=== PATIENT | male | born 1995 | race African-American/Black ===

== ENCOUNTER 2016-08-06 21:09 | Emergency (ER) | payer BC ==
[2016-08-06 21:21] VITALS: BP 127/78; PULSE 100; RESP 20; TEMP 98.6; O2SAT 93
[2016-08-06] MEDS ORDERED: IBUPROFEN 600 MG TAB PO ONE (21:39)
--- NOTE | 2016-08-06 21:57 | EDPHY ---
H & P Stated Complaint: right ankle injury Time Seen by Provider: 08/06/16 21:43 HPI/ROS: Chief Complaint: Right ankle injury HPI: The patient presents to the emergency department with complaints of an injury to his right ankle. He inverted his ankle while playing kickball earlier this evening. The patient does have a history of a prior ankle sprain. The patient denies any associated numbness or weakness. The patient is unable to bear weight. The patient reports moderate pain along the lateral aspect of the ankle. REVIEW OF SYSTEMS: Neuro: no headache, numbness, weakness Musculoskeletal: as above Skin: no abrasion or lacerations Source: Patient Exam Limitations: No limitations - Personal History Current Tetanus Diphtheria and Acellular Pertussis (TDAP): Yes - Medical/Surgical History Hx Asthma: No Hx Chronic Respiratory Disease: No Hx Diabetes: No Hx Cardiac Disease: No Hx Renal Disease: No Hx Cirrhosis: No Hx Alcoholism: No Hx HIV/AIDS: No Hx Splenectomy or Spleen Trauma: No - Social History Smoking Status: Never smoked - Physical Exam Exam: General appearance: alert no distress Right ankle: There is swelling and tenderness over the lateral malleolus. Ankle joint is stable and there is no tenderness over the Achilles tendon. The foot is nontender without swelling. Neurologic exam: The patient has normal sensation and motor function distal to the injury. Vascular exam: Normal pulses and capillary refill in the foot DIFFERENTIAL DIAGNOSIS: After history and physical exam differential diagnosis was considered for ankle injury including sprain, fracture, dislocation and soft tissue injury. Constitutional: Initial Vital Signs Temperature (C) 37 C 08/06/16 21:18 Heart Rate 100 08/06/16 21:18 Respiratory Rate 20 08/06/16 21:18 Blood Pressure 127/78 H 08/06/16 21:18 O2 Sat (%) 93 08/06/16 21:18 Allergies/Adverse Reactions: No Known Allergies Allergy (Unverified 08/06/16 21:18) Home Medications: Medication Instructions Recorded NK [No Known Home Meds] 08/06/16 Medical Decision Making - Diagnostics Imaging: Right ankle x-ray: Images reviewed by myself and discussed with radiologist. Negative for acute fracture dislocation ED Course/Re-evaluation: The patient presents to the ED with a right ankle sprain. The patient has been placed in a Stinson boot. The patient is advised to weight bear as tolerated. The patient should ice and use NSAIDs as needed. Patient is given follow up with our on-call orthopedic surgeon Dr. Luis E Slater for any unimproved symptoms. - Data Points Medications Given: Discontinued Medications Ibuprofen (Motrin) 600 mg PO EDNOW ONE Stop: 08/06/16 21:40 Last Admin: 08/06/16 21:44 Dose: 600 mg Departure - Departure Disposition: Home, Routine, Self-Care Clinical Impression: Right ankle sprain Condition: Good Instructions: Ankle Sprain (ED) Additional Instructions: 1. Take Ibuprofen or Motrin 600 mg by mouth three times a day. 2. You Stinson boot as needed for support. 3. Please follow up with the foot and ankle specialist you have been referred to for pain, swelling or immobility which persists past 7-10 days Referrals: Luis E Slater MD [Medical Doctor] - As per Instructions
== END 2016-08-06 22:05 | disposition home or self-care (01) ==
DX: S93.401A Sprain of unspecified ligament of right ankle, initial encounter (principal); X58.XXXA Exposure to other specified factors, initial encounter; Y93.89 Activity, other specified
CPT/HCPCS: L4386

== ENCOUNTER 2016-10-26 02:51 | Emergency (ER) | payer OTHER, BC ==
[2016-10-26 03:03] VITALS: RESP 16; TEMP 97.9
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
[2016-10-26] MEDS ORDERED: IBUPROFEN 600 MG TAB PO ONE ×2 (04:09→04:21)
[2016-10-26 04:23] VITALS: BP 149/89; PULSE 87; O2SAT 99
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
== END 2016-10-26 04:23 | disposition home or self-care (01) ==
LOC: EDUNIT#
PROC: 3E0T3CZ (ICD-10-PCS; principal; 2016-10-26)
DX: S02.2XXA Fracture of nasal bones, initial encounter for closed fracture (principal); S60.512A Abrasion of left hand, initial encounter; V89.2XXA Person injured in unspecified motor-vehicle accident, traffic, initial encounter; Y92.410 Unspecified street and highway as the place of occurrence of the external cause; Y99.8 Other external cause status; Y93.89 Activity, other specified

== ENCOUNTER 2017-01-02 18:19 | Emergency (ER) | payer BC, OTHER ==
[2017-01-02 18:31] VITALS: RESP 18; TEMP 98.4
[2017-01-02] MEDS ORDERED: LORazepam 2 MG/ML INJ IVP ONE (19:22)
--- NOTE | 2017-01-02 19:22 | EDPHY ---
H & P Time Seen by Provider: 01/02/17 18:57 HPI/ROS: Chief complaint. Chest pain HPI. 21-year-old male with complaints of shaking this generalized, chest pain, blurry vision. He describes his chest pain as compressing left anterior chest without radiation. No change with breathing or exertion. No sickness or fever. No sore throat or cough. Has a history of anxiety. He did not take his anxiety medications. He has also had shortness of breath and mom reports he was crying when she came to pick him up. He has had similar symptoms previously. Maybe slight shortness of breath. ROS Constitutional. Shaking, anxious Eyes. no problems with vision ENT. no sore throat, no nasal drainage Cardiovascular. Chest pain Respiratory. Slight shortness of breath Abdominal. no abdominal pain, no nausea/vomiting, no diarrhea . no problems urinating MS. no calf pain/swelling, no neck/back pain, no joint pain Skin. no rash Lymph. no swollen glands Neuro. no headache, no dizziness, no difficulty walking or with speech Past Medical/Surgical History: Depression, anxiety Social History: Single, nonsmoker, no alcohol Smoking Status: Never smoked Physical Exam: General Appearance: Alert, anxious well-developed male. Vital signs heart rate 104 Eyes: Pupils equal and round no pallor or injection. ENT, Mouth: Mucous membranes are moist. Respiratory: There are no retractions, lungs are clear to auscultation. Cardiovascular: Regular rate and rhythm. Gastrointestinal: Abdomen is soft and nontender, no masses, bowel sounds normal. Neurological: Awake and alert, sensory and motor exams grossly normal. Skin: Warm and dry, no rashes. Musculoskeletal: Neck is supple nontender. Extremities symmetrical, full range of motion. Psychiatric: Oriented x3. He is slightly agitated and anxious Constitutional: Initial Vital Signs Temperature (C) 36.9 C 01/02/17 18:24 Heart Rate 104 H 01/02/17 18:24 Respiratory Rate 18 01/02/17 18:24 Blood Pressure 133/97 H 01/02/17 18:24 O2 Sat (%) 98 01/02/17 18:24 O2 Delivery Mode Room Air Allergies/Adverse Reactions: No Known Allergies Allergy (Verified 01/02/17 18:22) Home Medications: Medication Instructions Recorded Mirtazapine [Remeron soltab 15 mg 30 mg PO DAILY 01/02/17 (*)] hydrOXYzine HCL [hydrOXYzine HCL 25 mg PO 01/02/17 (RX)] Medical Decision Making - Diagnostics EKG Interpretation: EKG interpreted by me shows normal sinus rhythm with normal intervals and axis. QRS is normal there is no significant ST elevation or depression. No arrhythmia. The rate is 80 Procedures: IV normal saline. Ativan IV ED Course/Re-evaluation: Re-evaluation at 8:40 p.m.. The patient and I discussed EKG and laboratory evaluation. We discussed treatment plan including criteria for return importance of follow-up and further evaluation. He expresses understanding and agreement His symptoms have completely resolved Differential Diagnosis: I think that this is likely anxiety. I considered electrolyte abnormality, cardiac arrhythmia. - Data Points Laboratory Results: Laboratory Results 01/02/17 19:50 01/02/17 19:50 01/02/17 01/02/17 01/02/17 19:50 19:50 19:50 WBC 10.51 10^3/uL H 10^3/uL (3.80-9.50) RBC 6.52 10^6/uL H 10^6/uL (4.40-6.38) Hgb 14.8 g/dL g/dL (13.7-17.5) Hct 47.6 % % (40.0-51.0) MCV 73.0 fL L fL (81.5-99.8) MCH 22.7 pg L pg (27.9-34.1) MCHC 31.1 g/dL L g/dL (32.4-36.7) RDW 15.9 % H % (11.5-15.2) Plt Count 334 10^3/uL 10^3/uL (150-400) MPV 10.2 fL fL (8.7-11.7) Neut % (Auto) 63.9 % % (39.3-74.2) Lymph % (Auto) 22.7 % % (15.0-45.0) [place] % (Auto) 10.5 % % (4.5-13.0) Eos % (Auto) 1.3 % % (0.6-7.6) Baso % (Auto) 1.1 % % (0.3-1.7) Nucleat RBC Rel Count 0.0 % % (0.0-0.2) Absolute Neuts (auto) 6.71 10^3/uL H 10^3/uL (1.70-6.50) Absolute Lymphs (auto) 2.39 10^3/uL 10^3/uL (1.00-3.00) Absolute Monos (auto) 1.10 10^3/uL H 10^3/uL (0.30-0.80) Absolute Eos (auto) 0.14 10^3/uL 10^3/uL (0.03-0.40) Absolute Basos (auto) 0.12 10^3/uL H 10^3/uL (0.02-0.10) Absolute Nucleated RBC 0.00 10^3/uL 10^3/uL (0-0.01) Immature Gran % 0.5 % % (0.0-1.1) Immature Gran # 0.05 10^3/uL 10^3/uL (0.00-0.10) D-Dimer < 0.27 ug/mLFEU ug/mLFEU (0.00-0.50) Sodium 138 mEq/L mEq/L (134-144) Potassium 4.3 mEq/L mEq/L (3.5-5.2) Chloride 103 mEq/L mEq/L (97-110) Carbon Dioxide 22 mEq/l mEq/l (22-31) Anion Gap 13 mEq/L mEq/L (8-16) BUN 13 mg/dL mg/dL (7-23) Creatinine 0.9 mg/dL mg/dL (0.7-1.3) Estimated GFR > 60 Glucose 84 mg/dL mg/dL (70-100) Calcium 9.8 mg/dL mg/dL (8.5-10.4) Troponin I < 0.012 ng/mL ng/mL (0.000-0.034) Medications Given: Discontinued Medications Lorazepam (Ativan Injection) 1 mg IVP EDNOW ONE Stop: 01/02/17 19:23 Last Admin: 01/02/17 19:53 Dose: 1 mg Departure - Departure Disposition: Home, Routine, Self-Care Clinical Impression: Acute anxiety Condition: Good Instructions: Anxiety (ED) Additional Instructions: Continue regular medications. Return for worsening symptoms. Follow up with your regular physician for further discussion possible medication adjustment Referrals: FAMILY,PRACTICE [Other] - As per Instructions DAVEY AGUIRRE [Non Staff Provider (MD)] - 2-3 days, call for appt. Stand Alone Forms: Work Excuse
[2017-01-02 20:04] LABS: % IMMATURE GRANULYOCYTES 0.5 % (0.0-1.1); ABSOLUTE IMMATURE GRANULOCYTES 0.05 10^3/uL (0.00-0.10); ADD DIFF? NO; ADD MORPH? NO; ADD SCAN? NO; ATYPICAL LYMPHOCYTE FLAG 30 (0-99); FRAGMENT RBC FLAG 0 (0-99); HEMATOCRIT 47.6 % (40.0-51.0); HEMOGLOBIN 14.8 g/dL (13.7-17.5); LEFT SHIFT FLG 0 (0-99); LIPEMIA HEMOLYSIS FLAG 80 (0-99); MEAN CELL HEMOGLOBIN 22.7 pg (27.9-34.1); MEAN CELL HEMOGLOBIN CONCENTR. 31.1 g/dL (32.4-36.7); MEAN PLATELET VOLUME 10.2 fL (8.7-11.7); PLATELET CLUMPS FLAG 0 (0-99); PLATELET COUNT 334 10^3/uL (150-400); RED BLOOD CELL COUNT 6.52 10^6/uL (4.40-6.38); RED CELL DISTRIBUTION WIDTH 15.9 % (11.5-15.2)
--- NOTE | 2017-01-02 20:09 | CPEKG ---
Heart Rate: 80 RR Interval: 750 P-R Interval: 152 QRSD Interval: 82 QT Interval: 368 QTC Interval: 425 P [place]: 80 QRS [place]: 76 T Wave [place]: 35 EKG Severity - NORMAL ECG - EKG Impression: SINUS RHYTHM Electronically Signed By: Johana Berumen 02-Jan-2017 20:26:28
[2017-01-02 20:14] LABS: ANION GAP 13 mEq/L (8-16); CALCIUM 9.8 mg/dL (8.5-10.4); CARBON DIOXIDE 22 mEq/l (22-31); CHLORIDE 103 mEq/L (97-110); CREATININE 0.9 mg/dL (0.7-1.3); GLOMERULAR FILTRATION RATE > 60; GLUCOSE 84 mg/dL (70-100); POTASSIUM 4.3 mEq/L (3.5-5.2); SODIUM 138 mEq/L (134-144)
[2017-01-02 20:26] LABS: TROPONIN I < 0.012 ng/mL (0.000-0.034)
[2017-01-02 21:30] VITALS: BP 118/81; PULSE 80; O2SAT 97
== END 2017-01-02 21:30 | disposition home or self-care (01) ==
DX: R07.89 Other chest pain (principal); F41.9 Anxiety disorder, unspecified
CPT/HCPCS: 96374; J2060

== ENCOUNTER 2017-01-05 17:37 | Emergency (ER) | payer BC ==
[2017-01-05 17:39] VITALS: RESP 16
[2017-01-05 17:56] LABS: % IMMATURE GRANULYOCYTES 0.3 % (0.0-1.1); ABSOLUTE IMMATURE GRANULOCYTES 0.03 10^3/uL (0.00-0.10); ADD DIFF? NO; ADD MORPH? NO; ADD SCAN? NO; ATYPICAL LYMPHOCYTE FLAG 20 (0-99); FRAGMENT RBC FLAG 0 (0-99); HEMATOCRIT 46.6 % (40.0-51.0); HEMOGLOBIN 14.4 g/dL (13.7-17.5); LEFT SHIFT FLG 0 (0-99); LIPEMIA HEMOLYSIS FLAG 80 (0-99); MEAN CELL HEMOGLOBIN 22.6 pg (27.9-34.1); MEAN CELL HEMOGLOBIN CONCENTR. 30.9 g/dL (32.4-36.7); MEAN CELL VOLUME 73.2 fL (81.5-99.8); MEAN PLATELET VOLUME 10.5 fL (8.7-11.7); PLATELET CLUMPS FLAG 0 (0-99); PLATELET COUNT 306 10^3/uL (150-400); RED BLOOD CELL COUNT 6.37 10^6/uL (4.40-6.38); RED CELL DISTRIBUTION WIDTH 15.6 % (11.5-15.2)
[2017-01-05 18:14] LABS: ANION GAP 16 mEq/L (8-16); CALCIUM 9.9 mg/dL (8.5-10.4); CARBON DIOXIDE 22 mEq/l (22-31); CHLORIDE 104 mEq/L (97-110); CREATININE 0.9 mg/dL (0.7-1.3); ETHANOL SERUM < 10 mg/dL (0-10); GLOMERULAR FILTRATION RATE > 60; GLUCOSE 101 mg/dL (70-100); POTASSIUM 3.8 mEq/L (3.5-5.2); SALICYLATE < 1.0 mg/dL (2.0-20.0); SODIUM 142 mEq/L (134-144)
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
[2017-01-05 22:58] VITALS: O2SAT 97
[2017-01-06 02:09] VITALS: BP 116/79; PULSE 74; TEMP 98.4
== END 2017-01-06 02:07 | disposition home or self-care (01) ==
DX: F43.21 Adjustment disorder with depressed mood (principal)
CPT/HCPCS: 80305; G0480

== ENCOUNTER → 2017-01-21 | Outpatient (CLI) | payer BC ==
[~2017-01-21] MED LIST: GADOBUTROL 10 ML VIAL IVP ONE
== END ==
LOC: FIMAGING 15:26
PROVIDERS: ATTEND Physician Assistant Medical
DX: S06.0X9A Concussion with loss of consciousness of unspecified duration, initial encounter (principal); F39 Unspecified mood [affective] disorder; R51 Headache
CPT/HCPCS: A9585

== ENCOUNTER 2017-04-07 10:52 | Emergency (ER) | payer BC ==
[2017-04-07 10:57] VITALS: RESP 16
[2017-04-07] MEDS ORDERED: IBUPROFEN 600 MG TAB PO ONE ×2 (11:12→11:33)
[2017-04-07] MEDS ORDERED: HYDROCODONE/APAP 5/325 TAB PO ONE (11:12)
--- NOTE | 2017-04-07 11:15 | EDPHY ---
General Narrative: CHIEF COMPLAINT: Left hand injury, punch to refrigerator HISTORY OF PRESENT ILLNESS: Patient complains of pain in the left 5th knuckle after punching refrigerator 1 hr ago. He did so out of anger. Significantly painful. No numbness or tingling. Difficulty bending the pinky due to pain. No pain at will pinky itself but the pain radiates into it. No laceration. No puncture. No pain in the left wrist, elbow or forearm. Worse with palpation and movement. No improvement rest. No other associated complaints or modifying factors. ESTABLISHED ORTHOPEDIST: None REVIEW OF SYSTEMS: Ten systems reviewed and are negative unless otherwise noted in the HPI PAST MEDICAL HISTORY: Microcytosis PAST SURGICAL HISTORY: None SOCIAL HISTORY: Nonsmoker. Originally from [place]. Currently at [facility] FAMILY HISTORY: Nausea toward EXAMINATION General Appearance: Alert, no distress Cardiovascular: Symmetric radial pulses 2+. Brisk cap refill Neurological: A&O, light sensation intact in the back of both hands. Interossei strength intact in the left hand. Skin: Warm and dry, no rash. No puncture. No laceration. Some swelling ecchymosis of the left 5th MCP joint. Extremities: Tenderness of the left MCP joint and left metacarpal. No bony tenderness of the left pinky. Range of motion of the hand is intact with slight radial deviation of the left pinky with flexion. No deficits with flexion or extension. No pain in the left anatomic snuffbox. Neurovascular intact distally Psychiatric: Mood and affect normal DIFFERENTIAL DIAGNOSES: Including but not limited to boxer's fracture, contusion, sprain, strain MDM: 11:13 a.m. Punch injury to the left hand with suspected boxer's fracture. He is neuro intact with some radial deviation of the pinky with flexion. No laceration or puncture. This is a closed injury. X-ray has been performed but not yet viewable. He is in no acute distress. Ibuprofen and Winside ordered. 11:20 a.m. X-ray as read by me reveals no acute fracture dislocation per 11:35 a.m. Radiologist has read this as a negative x-ray. I have re-evaluated the patient. He is neurovascular intact in no acute distress. He is asking for heart cast to be placed. I informed him that we do not do that. I will place him in a Velcro splint as I do not find any bony abnormality, and no pain in the anatomic snuffbox. I will discharge him with prescription for ibuprofen and outpatient follow-up for hand surgeon for definitive care. ED precautions discussed. Work note provided. He is comfortable with plan and discharged home in stable condition. SUPERVISION: This patient was independently evaluated without direct involvement of or examination by the attending physician. ED Precautions: Worsening pain. Erythema, edema, cyanosis, pallor, paresthesia or anesthesia. - Diagnostics Imaging Results: Imaging Impressions Hand X-Ray 04/07/17 10:58 Impression: Negative. No acute fracture. - History Smoking Status: Never smoked - Objective Vital Signs: Initial Vital Signs Temperature (C) 98.6 F 04/07/17 10:54 Heart Rate 69 04/07/17 10:54 Respiratory Rate 16 04/07/17 10:54 Blood Pressure 132/84 H 04/07/17 10:54 O2 Sat (%) 97 04/07/17 10:54 O2 Delivery Mode Room Air Allergies/Adverse Reactions: No Known Allergies Allergy (Verified 04/07/17 10:54) Home Medications: Medication Instructions Recorded Ibuprofen 600 mg PO Q8 PRN #15 tablet 04/07/17 Medications Given: Discontinued Medications Hydrocodone Bitart/Acetaminophen (Winside 5/325) 1 tab PO EDNOW ONE Stop: 04/07/17 11:13 Last Admin: 04/07/17 11:22 Dose: 1 tab Ibuprofen (Motrin) 600 mg PO EDNOW ONE Stop: 04/07/17 11:13 Last Admin: 04/07/17 11:20 Dose: 600 mg Departure - Departure Disposition: Home, Routine, Self-Care Clinical Impression: Contusion of hand, left Qualifiers: Encounter type: initial encounter Qualified Code(s): S60.222A - Contusion of left hand, initial encounter Condition: Good Instructions: Hand Sprain (ED) Additional Instructions: 1. Ibuprofen as prescribed as needed 2. Ice and elevate the extremity often 3. Brace as supplied as needed 4. Contact the hand surgeon for definitive care Referrals: Joe Mcdonald MD [Medical Doctor] - As per Instructions Stand Alone Forms: Work Excuse Prescriptions: Ibuprofen 600 mg PO Q8 PRN #15 tablet PRN Reason: Pain, Mild
[2017-04-07 11:59] VITALS: BP 122/62; PULSE 60; TEMP 98.6; O2SAT 98
== END 2017-04-07 11:59 | disposition home or self-care (01) ==
DX: S60.222A Contusion of left hand, initial encounter (principal); W22.8XXA Striking against or struck by other objects, initial encounter; Y93.89 Activity, other specified
CPT/HCPCS: L3908

== ENCOUNTER 2017-05-02 00:34 | Emergency (ER) | payer BC ==
--- NOTE | 2017-05-02 00:55 | EDPHY ---
H & P Stated Complaint: RECENT PNU,BUT FEELS LIKE HE TRIPPING HPI/ROS: HPI CHIEF COMPLAINT: Anxiety HISTORY OF PRESENT ILLNESS: This patient very pleasant 22-year-old male, he is otherwise healthy does have significant past medical history anxiety takes hydroxyzine p.r.n., he presents emergency room feeling anxious. Additionally reports that everything in the room is wavy. He states this made him feel more anxious decided come the emergency room. Initially he had numbness and tingling throughout his entire body this has since resolved. Patient states that he cannot sleep in like something for him to sleep. Past Medical History: Acute anxiety Past Surgical History: Denies surgical history Social History: Denies daily use of drugs alcohol tobacco. [employer] student. Family History: Noncontributory ROS REVIEW OF SYSTEMS: A comprehensive 10 point review of systems is otherwise negative aside from elements mentioned in the history of present illness. Exam Constitutional appears well nontoxic, anxious, triage nursing summary reviewed , vital signs reviewed, awake/alert. Eyes normal conjunctivae and sclera, EOMI, PERRLA. HENT normal inspection, atraumatic, moist mucus membranes, no epistaxis, neck supple/ no meningismus, no raccoon eyes. Respiratory clear to auscultation bilaterally, normal breath sounds, no respiratory distress, no wheezing. Cardiovascular rate normal, regular rhythm, no murmur, no edema, distal pulses normal. Gastrointestinal soft, non-tender, no rebound, no guarding, normal bowel sounds, no distension, no pulsatile mass. Genitourinary no CVA tenderness. Musculoskeletal no midline vertebral tenderness, full range of motion, no calf swelling, no tenderness of extremities, no meningismus, good pulses, neurovascularly intact. Skin pink, warm, & dry, no rash, skin atraumatic. Neurologic awake, alert and oriented x 3, AAOx3, moves all 4 extremities equally, motor intact, sensory intact, CN II-XII intact, normal cerebellar, normal vision, normal speech. Psychiatric anxious. Heme/Lymph/Immune no lymphadenopathy. Differential Diagnosis: Includes but is not limited to in a particular order acute anxiety, electrolyte disturbance, dehydration Medical Decision Making: Plan for this patient IV establishment IV fluid bolus 1 L normal saline, 1 mg IV Ativan for anxiety, check basic blood work and re- evaluate. Re-evaluation: 0304: Did re-evaluate this patient this time he feels much better after IV Ativan in-fact he has been sleeping. He denies any current complaints. He has not had any nausea vomiting. Vital signs are stable. Blood work is unremarkable normal electrolytes and a normal CBC years feels better after IV Ativan. Discussed return precautions with him. Additionally recommend that he talks to his primary care doctor about his anxiety. He understands return emergency room if he has worsening symptoms includes vomiting, fever, feeling worse. Source: Patient - Personal History Current Tetanus/Diphtheria Vaccine: Yes Current Tetanus Diphtheria and Acellular Pertussis (TDAP): Yes - Medical/Surgical History Hx Asthma: No Hx Chronic Respiratory Disease: No Hx Diabetes: No Hx Cardiac Disease: No Hx Renal Disease: No Hx Cirrhosis: No Hx Alcoholism: No Hx HIV/AIDS: No Hx Splenectomy or Spleen Trauma: No Other PMH: anxiety, DEPRESSION - Social History Smoking Status: Never smoked Constitutional: Initial Vital Signs Temperature (C) 36.8 C 05/02/17 00:43 Heart Rate 97 05/02/17 00:43 Respiratory Rate 18 05/02/17 00:43 Blood Pressure 130/87 H 05/02/17 00:43 O2 Sat (%) 97 05/02/17 00:43 O2 Delivery Mode Room Air Allergies/Adverse Reactions: No Known Allergies Allergy (Verified 05/02/17 00:46) Home Medications: Medication Instructions Recorded Ibuprofen 600 mg PO Q8 PRN #15 tablet 04/07/17 hydrOXYzine HCL [Vistaril 25MG] 25 mg PO 05/02/17 Medical Decision Making - Data Points Laboratory Results: Laboratory Results 05/02/17 01:15 05/02/17 01:15 05/02/17 05/02/17 01:15 01:15 WBC 6.88 10^3/uL 10^3/uL (3.80-9.50) RBC 6.53 10^6/uL H 10^6/uL (4.40-6.38) Hgb 15.0 g/dL g/dL (13.7-17.5) Hct 46.4 % % (40.0-51.0) MCV 71.1 fL L fL (81.5-99.8) MCH 23.0 pg L pg (27.9-34.1) MCHC 32.3 g/dL L g/dL (32.4-36.7) RDW 14.3 % % (11.5-15.2) Plt Count 330 10^3/uL 10^3/uL (150-400) MPV 9.8 fL fL (8.7-11.7) Neut % (Auto) 49.2 % % (39.3-74.2) Lymph % (Auto) 37.1 % % (15.0-45.0) [place] % (Auto) 10.8 % % (4.5-13.0) Eos % (Auto) 1.7 % % (0.6-7.6) Baso % (Auto) 0.9 % % (0.3-1.7) Nucleat RBC Rel Count 0.0 % % (0.0-0.2) Absolute Neuts (auto) 3.39 10^3/uL 10^3/uL (1.70-6.50) Absolute Lymphs (auto) 2.55 10^3/uL 10^3/uL (1.00-3.00) Absolute Monos (auto) 0.74 10^3/uL 10^3/uL (0.30-0.80) Absolute Eos (auto) 0.12 10^3/uL 10^3/uL (0.03-0.40) Absolute Basos (auto) 0.06 10^3/uL 10^3/uL (0.02-0.10) Absolute Nucleated RBC 0.00 10^3/uL 10^3/uL (0-0.01) Immature Gran % 0.3 % % (0.0-1.1) Immature Gran # 0.02 10^3/uL 10^3/uL (0.00-0.10) Sodium 148 mEq/L H mEq/L (134-144) Potassium 3.8 mEq/L mEq/L (3.5-5.2) Chloride 106 mEq/L mEq/L (97-110) Carbon Dioxide 26 mEq/l mEq/l (22-31) Anion Gap 16 mEq/L mEq/L (8-16) BUN 15 mg/dL mg/dL (7-23) Creatinine 0.9 mg/dL mg/dL (0.7-1.3) Estimated GFR > 60 Glucose 98 mg/dL mg/dL (70-100) Calcium 9.7 mg/dL mg/dL (8.5-10.4) Medications Given: Discontinued Medications Sodium Chloride (Ns) 1,000 mls @ 0 mls/hr IV ONCE ONE PRN Reason: Wide Open Stop: 05/02/17 00:59 Last Admin: 05/02/17 00:58 Dose: 1,000 mls Lorazepam (Ativan Injection) 1 mg IVP EDNOW ONE Stop: 05/02/17 00:59 Last Admin: 05/02/17 01:17 Dose: 1 mg Departure - Departure Disposition: Home, Routine, Self-Care Clinical Impression: Anxiety Condition: Good Instructions: Anxiety (ED) Additional Instructions: 1. Follow up with her primary care doctor. 2. Return to the emergency room if you have worsening symptoms questions or concerns. Referrals: UNKNOWN,NAME [Other] - As per Instructions
[2017-05-02] MEDS ORDERED: LORazepam 2 MG/ML INJ IVP ONE (00:58)
[2017-05-02] MEDS ORDERED: NS 1,000 ML IV ONE (00:58)
[2017-05-02 01:22] LABS: PLATELET COUNT 330 10^3/uL (150-400)
[2017-05-02 02:26] VITALS: RESP 16
[2017-05-02 03:13] VITALS: BP 96/55; PULSE 74; TEMP 98.1; O2SAT 96
== END 2017-05-02 03:19 | disposition home or self-care (01) ==
PROC: 3E0337Z Introduction of Electrolytic and Water Balance Substance into Peripheral Vein, Percutaneous Approach (ICD-10-PCS; principal; 2017-05-02)
DX: F41.9 Anxiety disorder, unspecified (principal)
CPT/HCPCS: 96374; J2060

== ENCOUNTER 2017-10-03 17:18 | Inpatient (IN) | payer BC ==
[2017-10-03] MEDS ORDERED: NS 1,800 ML IV ONE (18:19)
[2017-10-03] MEDS ORDERED: ACETAMINOPHEN 500 MG TAB PO ONE (18:19)
[2017-10-03] MEDS ORDERED: ACETAMINOPHEN 500 MG TAB ONE (19:01)
[2017-10-03 19:04] LABS: PLATELET COUNT 231 10^3/uL (150-400)
--- NOTE | 2017-10-03 19:05 | EDPHY ---
H & P Time Seen by Provider: 10/03/17 18:18 HPI/ROS: Chief complaint. Fever HPI. 22-year-old male fever for 2 days. Been using [id number] medications. He feels shaky and anxious. He has the pain in his back in his legs. Myalgias. No chest pain, shortness of breath, cough. No unusual leg or swelling. No abdominal pain urinary symptoms. Vomiting x1 today. No travel or known exposures to Infectious Disease. No sore throat or congestion. ROS Constitutional. Fever and chills Eyes. no problems with vision ENT. no sore throat, no nasal drainage Cardiovascular. no chest pain Respiratory. no shortness of breath, no cough Abdominal. no abdominal pain, no nausea/vomiting, no diarrhea . no problems urinating MS. Myalgias Skin. no rash Lymph. no swollen glands Neuro. no headache, no dizziness, no difficulty walking or with speech Past Medical/Surgical History: Anxiety, depression Social History: Single, nonsmoker, no alcohol Smoking Status: Never smoked Physical Exam: General Appearance: Alert well-developed male temp 39 degrees otherwise vital signs stable Eyes: Pupils equal and round no pallor or injection. ENT, tympanic membranes are normal. Pharynx without injection. Mucous membranes are moist Respiratory: There are no retractions, lungs are clear to auscultation. Cardiovascular: Regular rate and rhythm. Gastrointestinal: Abdomen is soft and nontender, no masses, bowel sounds normal. Neurological: Awake and alert, sensory and motor exams grossly normal. Skin: Warm and dry, no rashes. Musculoskeletal: Neck is supple nontender. Extremities symmetrical, full range of motion. Psychiatric: Patient is oriented X 3, there is no agitation. Constitutional: Initial Vital Signs Temperature (C) 39 C H 10/03/17 17:41 Heart Rate 98 10/03/17 17:41 Respiratory Rate 36 H 10/03/17 17:41 Blood Pressure 124/71 H 10/03/17 17:41 O2 Sat (%) 99 10/03/17 17:41 O2 Delivery Mode Room Air Allergies/Adverse Reactions: No Known Allergies Allergy (Verified 10/03/17 17:40) Medical Decision Making - Diagnostics Imaging Results: Imaging Impressions Chest X-Ray 10/03/17 18:19 Impression: Normal chest, negative for acute cardiopulmonary abnormality. Chest x-ray interpreted by me is normal CT abdomen pelvis with IV contrast shows a normal appendix. There is a stone in the renal calices but not in the ureter. No evidence for hydronephrosis. Procedures: IV normal saline; ibuprofen for fever Sepsis evaluation ED Course/Re-evaluation: 7:30 p.m. Severe sepsis declared now. Patient has an elevated lactate at 2.5. Re-evaluation 7:35 p.m..--patient is moving his head and neck around without difficulty. His complaint really is right flank pain and re-evaluation of his abdomen shows tenderness in the right lower quadrant. Patient will be medicated and CT abdomen pelvis ordered. Re-evaluation at 8:25 p.m.. Patient is stable. He and I discussed imaging and lab results. We discussed treatment plan including recommendation for admission. He expresses understanding and agreement I consulted discussed case Dr. Luna, hospitalist, who agrees to the admission Differential Diagnosis: I do not think the patient has meningitis. I think this may be viral syndrome. I considered pneumonia, urinary tract infection pyelonephritis. I considered kidney stone and appendicitis. - Data Points Laboratory Results: Laboratory Results 10/03/17 18:45 10/03/17 18:45 10/03/17 10/03/17 10/03/17 19:05 18:45 18:45 WBC RBC Hgb Hct MCV MCH MCHC RDW Plt Count MPV Neut % (Auto) Lymph % (Auto) [place] % (Auto) Eos % (Auto) Baso % (Auto) Nucleat RBC Rel Count Absolute Neuts (auto) Absolute Lymphs (auto) Absolute Monos (auto) Absolute Eos (auto) Absolute Basos (auto) Absolute Nucleated RBC Immature Gran % Seg Neutrophils % Band Neutrophils % Lymphocytes % Monocytes % Eosinophils % Basophils % Metamyelocytes % Myelocytes % Promyelocytes % Blast Cells % Immature Gran # Absolute Seg Neuts Absolute Band Neuts Absolute Lymphocytes Absolute Monocytes Absolute Eosinophils Absolute Basophils Absolute Metamyelocyte Absolute Myelocytes Absolute Promyelocytes Absolute Plasma Cells Absolute Blast Cells Plasma Cells % Platelet Estimate Microcytic Cells Elliptocytes Acanthocytes (Spur) Smear Review By PT 15.4 SEC H SEC (12.0-15.0) INR 1.20 H (0.83-1.16) APTT 34.6 SEC SEC (23.0-38.0) VBG Lactic Acid 2.5 mmol/L H mmol/L (0.7-2.1) Sodium 135 mEq/L mEq/L (135-145) Potassium 3.3 mEq/L mEq/L (3.3-5.0) Chloride 101 mEq/L mEq/L (97-110) Carbon Dioxide 19 mEq/l L mEq/l (22-31) Anion Gap 15 mEq/L mEq/L (8-16) BUN 7 mg/dL mg/dL (7-23) Creatinine 0.9 mg/dL mg/dL (0.7-1.3) Estimated GFR > 60 Glucose 94 mg/dL mg/dL (70-100) Calcium 9.1 mg/dL mg/dL (8.5-10.4) Total Bilirubin 1.4 mg/dL mg/dL (0.1-1.4) Urine Color Urine Appearance Urine pH Ur Specific [place] Urine Protein Urine Ketones Urine Blood Urine Nitrate Urine Bilirubin Urine Urobilinogen Ur Leukocyte Esterase Urine RBC Urine WBC Ur Epithelial Cells Urine Mucus Urine Glucose 10/03/17 10/03/17 18:45 17:45 WBC 14.20 10^3/uL H 10^3/uL (3.80-9.50) RBC 5.86 10^6/uL 10^6/uL (4.40-6.38) Hgb 13.2 g/dL L g/dL (13.7-17.5) Hct 40.7 % % (40.0-51.0) MCV 69.5 fL L fL (81.5-99.8) MCH 22.5 pg L pg (27.9-34.1) MCHC 32.4 g/dL g/dL (32.4-36.7) RDW 13.8 % % (11.5-15.2) Plt Count 231 10^3/uL 10^3/uL (150-400) MPV 10.8 fL fL (8.7-11.7) Neut % (Auto) Not Reported Lymph % (Auto) Not Reported [place] % (Auto) Not Reported Eos % (Auto) Not Reported Baso % (Auto) Not Reported Nucleat RBC Rel Count Not Reported Absolute Neuts (auto) Not Reported Absolute Lymphs (auto) Not Reported Absolute Monos (auto) Not Reported Absolute Eos (auto) Not Reported Absolute Basos (auto) Not Reported Absolute Nucleated RBC Not Reported Immature Gran % Not Reported Seg Neutrophils % 88.0 % % Band Neutrophils % 0 % % Lymphocytes % 4.0 % % Monocytes % 8.0 % % Eosinophils % 0 % % Basophils % 0 % % Metamyelocytes % 0 % % Myelocytes % 0 % % Promyelocytes % 0 % % Blast Cells % 0 % % Immature Gran # Not Reported Absolute Seg Neuts 12.50 10^/uL H 10^/uL (1.70-6.50) Absolute Band Neuts 0.00 10^3/uL 10^3/uL (0.00-0.70) Absolute Lymphocytes 0.57 10^3/uL L 10^3/uL (1.00-3.00) Absolute Monocytes 1.14 10^3/uL H 10^3/uL (0.30-0.80) Absolute Eosinophils 0.00 10^3/uL L 10^3/uL (0.03-0.40) Absolute Basophils 0.00 10^3/uL L 10^3/uL (0.02-0.10) Absolute Metamyelocyte 0.00 10^3/mL 10^3/mL (0.00-0.00) Absolute Myelocytes 0.00 10^3/mL 10^3/mL (0.00-0.00) Absolute Promyelocytes 0.00 10^3/uL 10^3/uL (0.00-0.00) Absolute Plasma Cells 0.00 10^3/uL 10^3/uL (0.00-0.00) Absolute Blast Cells 0.00 10^3/uL 10^3/uL (0.00-0.00) Plasma Cells % 0 % % Platelet Estimate ADEQUATE (ADEQ) Microcytic Cells 2+ H Elliptocytes 1+ H Acanthocytes (Spur) 1+ H Smear Review By Pending PT INR APTT VBG Lactic Acid Sodium Potassium Chloride Carbon Dioxide Anion Gap BUN Creatinine Estimated GFR Glucose Calcium Total Bilirubin Urine Color YELLOW Urine Appearance CLEAR Urine pH 5.0 (5.0-7.5) Ur Specific [place] 1.023 (1.002-1.030) Urine Protein NEGATIVE (NEGATIVE) Urine Ketones NEGATIVE (NEGATIVE) Urine Blood 1+ H (NEGATIVE) Urine Nitrate NEGATIVE (NEGATIVE) Urine Bilirubin NEGATIVE (NEGATIVE) Urine Urobilinogen 2.0 EU H EU (0.2-1.0) Ur Leukocyte Esterase NEGATIVE (NEGATIVE) Urine RBC 5-10 /hpf H /hpf (0-3) Urine WBC 1-3 /hpf /hpf (0-3) Ur Epithelial Cells NONE SEEN /lpf /lpf (NONE-1+) Urine Mucus TRACE /lpf /lpf (NONE-1+) Urine Glucose NEGATIVE (NEGATIVE) Medications Given: Discontinued Medications Acetaminophen (Tylenol) 1,000 mg PO EDNOW ONE Stop: 10/03/17 18:20 Last Admin: 10/03/17 19:06 Dose: 1,000 mg Sodium Chloride (Ns) 1,800 mls @ 3,600 mls/hr 30 ml/kg infuse over 30 min ( 1800 ml) IV EDNOW ONE PRN Reason: Protocol Stop: 10/03/17 18:48 Last Admin: 10/03/17 19:05 Dose: 1,800 mls Ibuprofen (Motrin) 600 mg PO EDNOW ONE Stop: 10/03/17 19:07 Last Admin: 10/03/17 19:08 Dose: 600 mg Morphine Sulfate (Morphine) 6 mg IVP EDNOW ONE Stop: 10/03/17 19:42 Last Admin: 10/03/17 20:00 Dose: 6 mg Departure - Departure Disposition: [facility] Clinical Impression: Fever Qualifiers: Fever type: unspecified Qualified Code(s): R50.9 - Fever, unspecified Sepsis Qualifiers: Sepsis type: sepsis due to unspecified organism Qualified Code(s): A41.9 - Sepsis, unspecified organism Condition: Fair Referrals: NONE *PRIMARY CARE P,. [Primary Care Provider] - As per Instructions
[2017-10-03] MEDS ORDERED: IBUPROFEN 600 MG TAB PO ONE (19:06)
[2017-10-03 19:10] LABS: INR 1.2 (0.83-1.16); PROTIME(PATIENT) 15.4 SEC (12.0-15.0)
[2017-10-03] MEDS ORDERED: IOPAMIDOL (ISOVUE-300) 100 ML BTL ONE (19:55)
[2017-10-03] MEDS ORDERED: ACETAMINOPHEN 325 MG TAB PO PRN (20:38)
[2017-10-03] MEDS ORDERED: ONDANSETRON DISINTEGRATING 4 MG TAB PO PRN (20:38)
[2017-10-03] MEDS ORDERED: ONDANSETRON 4 MG/2 ML VIAL IVP PRN (20:38)
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
[2017-10-03] MEDS: NS 1,000 ML IV SCH (23:14)
[2017-10-03] MEDS: oxyCODONE IR 5 MG TAB PO PRN (23:18)
[2017-10-03] MEDS ORDERED: KETOROLAC 15 MG/1 ML SDV IVP ONE (23:22)
[2017-10-04] MEDS ORDERED: KETOROLAC 15 MG/1 ML SDV IVP SCH
[2017-10-04] MEDS: KETOROLAC 30 MG/1 ML SDV IVP SCH ×5 (00:10→23:45)
[2017-10-04] MEDS: oxyCODONE IR 5 MG TAB PO PRN ×4 (04:11→21:34)
[2017-10-04] MEDS: NS 1,000 ML IV SCH ×2 (12:46→19:33)
--- NOTE | 2017-10-04 16:11 | HOSPPROG ---
Hospitalist Progress Note Assessment/Plan: * Sepsis -fever/leukocytosis/elevated lactate/positive procalcitonin -concerning for bacterial process, although no source found -continue to hold abx - low threshold to start if becomes more toxic * Bilateral flank pain - ? worse after eating -US negative for GB disease -UA negative * Non-obstructive kidney stone -not causing symptoms * Microcytosis - ? thalassemia -outpatient hematology consult Subjective: Still with severe bilateral flank pain Objective: Vital Signs Temp Pulse Resp BP Pulse Ox 36.6 C 54 L 18 107/67 99 10/04/17 15:17 10/04/17 15:17 10/04/17 15:17 10/04/17 15:17 10/04/17 15:17 Microbiology 10/03/17 23:25 Respiratory Panel (PCR) - Final Nasal, Sinus - Swab No Organism Detected 10/03/17 21:45 Gram Stain - Final Cerebral Spinal Fluid 10/03/17 10/04/17 10/05/17 05:59 05:59 05:59 Intake Total 1999 1883 Balance 1999 1883 PT 15.4 SEC (12.0-15.0) H 10/03/17 18:45 INR 1.20 (0.83-1.16) H 10/03/17 18:45 ABD US - negative for gallstones d/w Dr. Mix - ER Follow-up - Physical Exam Constitutional: no apparent distress, appears nourished, not in pain Cardiovascular: regular rate and rhythym, no murmur, rub, or gallop Respiratory: no respiratory distress, no rales or rhonchi, clear to auscultation Gastrointestinal: normoactive bowel sounds, soft, non-tender abdomen, no palpable masses Skin: no rashes or abrasions, no fluctuance, no induration Neurologic: AAOx3, sensation intact bilaterally Psychiatric: interacting appropriately, not anxious, not encephalopathic, thought process linear ICD10 Worksheet Patient Problems: Problems Problem Status Onset Fever Acute Sepsis Acute
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
--- NOTE | 2017-10-04 16:35 | PDMN ---
Medical Necessity Medical necessity: C/M review: Patient meets INPT crtieria under [facility] M-160 Sepsis and Other Febrile Illness, without Focal Infection: Acute and persistent sepsis, fever - 39.3 T max, VBG lactic acid 2.5, 1.1, positive procalcitonin 0.66, concerning for bacterial process, although no source found as yet, WBC 14.20, acute and persistent severe bilateral flank pain - questionably worse after eating, abdominal US negative for gallbladder disease, UA negative, non-obstructive right kidney stone seen on CT, requiring lumbar puncture done in ED - CSF gram stain and preliminary culture negative, blood cultures pending, ongoing IV NS 125 ml/hr. infusion, IV Ketrolac Q 6 hrs. scheduled, additional oral Oxycodone as needed, comorbid microcytosis - questionable thalassemia, recommended outpatient hematology consult. MD anticipates > 2 MN LOS for ongoing med nec fro eval and TX of above.
[2017-10-04] MEDS ORDERED: CYCLOBENZAPRINE 10 MG TAB PO PRN (23:46)
[2017-10-05 05:16] LABS: PLATELET COUNT 180 10^3/uL (150-400)
[2017-10-05] MEDS: KETOROLAC 30 MG/1 ML SDV IVP SCH (06:19)
[2017-10-05] MEDS: NS 1,000 ML IV SCH (06:20)
[2017-10-05 07:26] VITALS: BP 111/67
--- NOTE | 2017-10-05 15:27 | GDS ---
[f rep st] DISCHARGE SUMMARY DISCHARGE DIAGNOSES: 1. Suspected viral infection. 2. Systemic inflammatory response syndrome versus sepsis. 3. Nonobstructive kidney stone. 4. Microcytosis. HOSPITAL COURSE: The patient is a 22-year-old male who presented with high fever, leukocytosis, elev ated lactate, and a positive procalcitonin. This was all consistent with sepsis. No source was iden tified. He was admitted to observation. Blood cultures remain negative. He underwent a lumbar punc ture that was negative. Chest x-ray and urine were unremarkable. His respiratory PCR was negative. Dundy spot was negative. He has recently been tested for HIV and is negative. Overall, this is prob ably just a viral illness. All of his SIRS criteria resolved with conservative therapy and he did no t receive antibiotics. On the day of discharge, his leukocytosis and fever have resolved. He is fee ling improved. Incidentally noted during this hospitalization is a microcytosis. He may have some type of undiagnos ed thalassemia or other hematologic abnormality. Recommend he follow up with Hematology as an outpat ient. DISCHARGE MEDICATIONS: Please see computer record for full detailed list. There were no new medicat ions given at time of hospital discharge. ADDITIONAL DISCHARGE INSTRUCTIONS: Outpatient Hematology consultation to evaluate microcytosis. Greater than 30 minutes' time spent arranging this discharge. Patient seen and examined by me on day of discharge. /[id number]/MODL
== END 2017-10-05 10:02 | disposition home or self-care (01) | DRG 866 ==
LOC: F3E 22:49 → OBSVTOIN 10-04 12:21
PROVIDERS: ADMIT Internal Medicine; ATTEND Internal Medicine
PROC: 009Y3ZZ Drainage of Lumbar Spinal Cord, Percutaneous Approach (ICD-10-PCS; principal; 2017-10-04)
DX: B34.9 Viral infection, unspecified (principal); R50.9 Fever, unspecified; R71.8 Other abnormality of red blood cells; D72.829 Elevated white blood cell count, unspecified; N20.0 Calculus of kidney; M54.2 Cervicalgia
CPT/HCPCS: 96374; G0378; J1885; J2270; Q9967

== ENCOUNTER → 2017-10-10 | Outpatient (CLI) | payer BC | LOC: FIMAGING 15:44 | DX: M54.9 Dorsalgia, unspecified (principal) ==